=== PATIENT | male | born 1950 | race Caucasian/White ===

== ENCOUNTER 2018-10-31 23:46 | Emergency (ER) | payer MEDICARE, BC ==
[2018-11-01 01:05] LABS: ALT (SGPT) 28 U/L (8-55); AST (SGOT) 18 U/L (5-34); Albumin 3.6 g/dL (3.4-4.8); Alkaline Phosphatase 153 U/L (40-150); Anion Gap 15 mmol/L (10-20); BUN (Urea Nitrogen) 18 mg/dL (8.4-25.7); Bilirubin, Total 0.3 mg/dL (0.2-1.2); Calc. Creatinine Clearance 0 mL/min (70-130); Calcium 9.1 mg/dL (7.8-10.44); Carbon Dioxide 24 mmol/L (23-31); Chloride 107 mmol/L (98-107); Estimated GFR-MDRD 82; Globulin 3.2 g/dL (2.4-3.5); Glucose 106 mg/dL (80-115); Potassium 4.7 mmol/L (3.5-5.1); Protein, Total 6.8 g/dL (5.8-8.1); Sodium 141 mmol/L (136-145)
[2018-11-01 01:12] LABS: #Basophils 0.1 thou/uL (0.0-0.2); #Eosinphils 0.2 thou/uL (0.0-0.7); #Lymphocytes 1.8 thou/uL (1.20-3.40); #Monocytes 0.9 thou/uL (0.11-0.59); #Neutrophils 5.1 thou/uL (1.40-6.50); %Basophils 1.6 % (0.0-1.0); %Eosinophils 2.5 % (0.0-10.0); %Lymphocytes 21.9 % (21.0-51.0); %Monocytes 10.8 % (0.0-10.0); %Neutrophils 63.2 % (42.0-75.0); Hemoglobin 11.5 g/dL (14.0-18.0); Mean Corpuscular HGB CONC 30.9 g/dL (32.0-36.0); Mean Corpuscular Hemoglobin 28.2 pg (27.0-31.0); Mean Corpuscular Volume 91.5 fL (78.0-98.0); Mean Platelet Volume 6.4 fL (7.4-10.4); Platelet Count 258 thou/uL (130-400); RBC Distribution Width 13.8 % (11.5-14.5); Red Blood Cell (RBC) Count 4.06 mill/uL (4.70-6.10)
[2018-11-01 03:04] LABS: Troponin I Less than 0.010 ng/mL (< 0.028)
== END 2018-11-01 03:22 | disposition home or self-care (01) ==
LOC: BURERS 23:46
DX: R00.2 Palpitations (principal); R07.89 Other chest pain; I25.10 Atherosclerotic heart disease of native coronary artery without angina pectoris; F32.9 Major depressive disorder, single episode, unspecified; Z87.891 Personal history of nicotine dependence; Z79.899 Other long term (current) drug therapy; Z79.82 Long term (current) use of aspirin; Z95.5 Presence of coronary angioplasty implant and graft
CPT/HCPCS: 36415; 80053; 84484; 85025; 99284

== ENCOUNTER 2018-11-04 00:42 | Emergency (ER) | payer MEDICARE, BC ==
[2018-11-04 01:10] LABS: Bilirubin Negative (Negative); Blood, Urine Large (Negative); Glucose, Urine (Dipstick) Negative (Negative); Leukocyte Negative (Negative); Nitrite Negative (Negative); Protein, Urine (Dipstick) 30 mg/dL (Neg-Trace); Urobilinogen 0.2 mg/dL (Less than 2)
[2018-11-04 01:12] LABS: Clarity Hazy (Clear)
[2018-11-04 01:20] LABS: #Basophils 0.1 thou/uL (0.0-0.2); #Eosinphils 0.2 thou/uL (0.0-0.7); #Lymphocytes 2.4 thou/uL (1.20-3.40); #Monocytes 0.8 thou/uL (0.11-0.59); #Neutrophils 6.9 thou/uL (1.40-6.50); %Basophils 1.1 % (0.0-1.0); %Eosinophils 2.4 % (0.0-10.0); %Lymphocytes 22.6 % (21.0-51.0); %Monocytes 7.9 % (0.0-10.0); Hemoglobin 12.3 g/dL (14.0-18.0); Mean Corpuscular HGB CONC 32.3 g/dL (32.0-36.0); Mean Corpuscular Hemoglobin 28.8 pg (27.0-31.0); Mean Corpuscular Volume 89.3 fL (78.0-98.0); Mean Platelet Volume 6.3 fL (7.4-10.4); Platelet Count 272 thou/uL (130-400); RBC Distribution Width 13.9 % (11.5-14.5); Red Blood Cell (RBC) Count 4.28 mill/uL (4.70-6.10); White Blood Cell (WBC) Count 10.4 thou/uL (4.8-10.8)
[2018-11-04 01:24] LABS: RBC/HPF Greater than 50 HPF (0-3); Squamous Epithelial 0-3 HPF (0-3); WBC/HPF 0-3 HPF (0-3)
[2018-11-04 01:25] LABS: Calcium Oxalate Crystals 2+ HPF (None Seen); Mucous/LPF 1+ LPF (<2+)
[2018-11-04 01:28] LABS: ALT (SGPT) 32 U/L (8-55); AST (SGOT) 21 U/L (5-34); Alkaline Phosphatase 146 U/L (40-150); BUN (Urea Nitrogen) 14 mg/dL (8.4-25.7); Bilirubin, Total 0.3 mg/dL (0.2-1.2); Calc. Creatinine Clearance 0 mL/min (70-130); Calcium 9.4 mg/dL (7.8-10.44); Carbon Dioxide 25 mmol/L (23-31); Estimated GFR-MDRD 66; Globulin 3.4 g/dL (2.4-3.5); Glucose 134 mg/dL (80-115); Protein, Total 7.4 g/dL (5.8-8.1)
[2018-11-04 01:33] LABS: Chloride 106 mmol/L (98-107); Sodium 141 mmol/L (136-145)
[2018-11-04 01:41] LABS: Anion Gap 14 mmol/L (10-20)
--- NOTE | 2018-11-04 09:20 | CT ---
PRELIMINARY REPORT/[facility]/EMERGENCY AFTER HOURS PROCEDURE: EXAM: CT Abdomen and Pelvis Without Contrast EXAM DATE/TIME: 11/04/2018 1:12 AM CLINICAL HISTORY: 68 years old, male; Abdominal pain; Flank; Left; Prior surgery; Surgery date: <1 month; Surgery type: Heart; Patient HX: History of stones TECHNIQUE: Imaging protocol: Computed tomography of the abdomen and pelvis without contrast. Radiation optimization: All CT scans at this facility use at least one of these dose optimization candace hniques: automated exposure control; mA and/or kV adjustment per patient size (includes targeted exam s where dose is matched to clinical indication); or iterative reconstruction. COMPARISON: No relevant prior studies available. FINDINGS: Lungs: There are nonspecific subcentimeter nodules in the right middle lobe and left lung base. Bibasilar linear atelectasis/scarring. Heart: Small pericardial effusion. Mediastinum: Small hiatal hernia. Liver: Geographic hypodense areas in the right lobe of the liver. Gallbladder and bile ducts: The gallbladder is decompressed. Pancreas: No pancreatic mass or ductal dilation. Spleen: No splenic masses. Adrenals: No adrenal nodules. Kidneys and ureters: Exophytic cyst right kidney. There is a 3 mm stone in the mid to distal left ure ter at the L5/S1 level resulting in mild hydroureteronephrosis. Stomach and bowel: No bowel obstruction. Colonic diverticulosis without evidence of acute diverticulitis. Appendix: The appendix is not visualized, however there are no inflammatory changes in the right lower quadrant to suspect appendicitis. Intraperitoneal space: No free air or free fluid. Vasculature: Atherosclerosis of the aorta without aneurysm. Lymph nodes: Subcentimeter lymph nodes along the distal esophagus. Bladder: Normal bladder. Reproductive: Normal appearance of the prostate and seminal vesicles. Bones/joints: Median sternotomy wires. Degenerative changes of the bilateral hips and protrusio. Posterior spinal fusion of L3, L4 and L5 and screws through the bilateral iliacs. There is destructio n of the L5 vertebral body and posterior migration of the L4-L5 intervertebral body spacer. Laminecto mies at L3, L4 and L5. Soft tissues: Bilateral fat containing inguinal hernias. Tiny fat containing umbilical hernia. IMPRESSION: 1. There is a 3 mm stone in the mid to distal left ureter resulting in mild hydroureteronephrosis. 2. Defer to on-site radiologist for followup recommendations or comparison to prior images not availa ble at this time for findings including geographic heterogeneity to the liver, possibly due to fatty infiltration, subcentimeter pulmonary nodules, and surgical changes of the lower lumbar spine associa madelin with destruction of the L5 vertebral body and posterior migration of the L4-L5 intervertebral bod y disc spacer into the canal. Thank you for allowing us to participate in the care of your patient. Dictated and Authenticated by: Sola Angulo MD 11/04/2018 2:00 AM Central Time ([place] & [place]) FINAL REPORT CT ABDOMEN AND PELVIS WITHOUT CONTRAST: Date: 11/04/18 Comparison made with the prior study of 12/25/14 done at [facility]. The lung bases show no acute infiltrate. There is some scarring in the left lower lobe posteriorly. A tiny subcentimeter nodule is noted in the right middle lobe anteriorly and possibly in the left lowe r lobe. Looking back at the 2014 studies, these were present previously and have not changed over suzan e. The liver may be slightly larger today. There is a geographic distribution of hypodensity throughout the liver that was not present before. This may just be areas of fatty infiltration and sparing. It w ould be better evaluated in an exam with contrast. The spleen, pancreas, and gallbladder show no acut e findings. The gallbladder is decompressed. The adrenal glands appear normal. The abdominal aorta is normal in size. Mild to moderate left hydronephrosis is present secondary to a 4.0 mm calculus at approximately the L 5-S1 level. I do not see any other renal calculi. There is a 1.9 cm protrusion from the margin of the right kidney that is most likely an exophytic cyst. It is very smooth and very peripheral. It was pr esent on the 2015 study, but was slightly smaller. The stomach has a large amount of fluid and foodstuff in it and it is mildly distended. There is no d istention of bowel. There is some question of some slight thickening of the wall of the second part o f the duodenum. No pancreatic abnormality around it was appreciated. No free air or free fluid seen. No inflammatory changes seen around bowel. CT of the pelvis shows no pelvic masses, fluid collections, or inflammatory changes. The prostate see ms somewhat large, but it is not substantially different than the prior study. The patient has had extensive laminectomies and posterior lumbar fusions at the L4-S1 levels with tonja dware in place. The streak artifact from the hardware significantly degrades the bony images. However , it is difficult to visualize an intact L5 vertebra. It seems rather fragmented. It is roughly destiny rable to the prior study, but difficult to compare due to all the artifact. Additionally, on the sagi ttal view, the synthetic disc spacer at L4-L5 appears to have migrated posteriorly into the central c anal by a significant amount. This deserves further imaging follow-up. IMPRESSION: 1. 4.0 mm distal left ureteral calculus at the L5 level causing mild to moderate left hydronephrosis . 2. Spotty hypodensity in a geographic pattern throughout the liver. Thought to be most likely due to areas of fatty infiltration and sparing. An exam with IV contrast could be helpful to sort this out. Ultrasound might be helpful as well. 3. Presumed exophytic cyst of the right kidney. While a little more hyperdense than usual, its very peripheral location and the fact that it was present 4 years ago mitigates towards this diagnosis. Ul trasound could be helpful in confirmation. 4. 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 The L5 ve rtebra seems markedly fragmented and it is difficult to tell if this much different than the 2015 ismael dy due to all of the streak artifact. Would recommend a MRI of the lumbar spine to investigate both o f these findings further. 5. Prostatic enlargement. Report in agreement with preliminary reading by Vijay. POS: HOME
== END 2018-11-04 02:10 | disposition home or self-care (01) ==
LOC: BURERS 00:42
DX: N13.2 Hydronephrosis with renal and ureteral calculous obstruction (principal); I25.10 Atherosclerotic heart disease of native coronary artery without angina pectoris; F32.9 Major depressive disorder, single episode, unspecified; Z87.891 Personal history of nicotine dependence; Z95.1 Presence of aortocoronary bypass graft; Z79.899 Other long term (current) drug therapy; Z79.82 Long term (current) use of aspirin
CPT/HCPCS: 74176; 80053; 81003; 81015; 85025; 96374; 96375

== ENCOUNTER 2021-10-15 22:28 | Emergency (ER) | payer MEDICARE, BC | END 2021-10-15 23:17 | disposition left against medical advice (07) | LOC: BURERS 22:28 | DX: Z53.21 Procedure and treatment not carried out due to patient leaving prior to being seen by health care provider (principal) ==